=== PATIENT | male | born 1990 | race Caucasian/White ===

== ENCOUNTER 2020-07-11 10:50 | Outpatient (CLI) | payer BC | END 2020-07-11 10:51 | disposition home or self-care (01) | LOC: DTY/OP 10:50 | PROVIDERS: ATTEND Family Medicine | DX: E66.01 Morbid (severe) obesity due to excess calories (principal); Z68.35 Body mass index [BMI] 35.0-35.9, adult | CPT/HCPCS: 97802 ==